=== PATIENT | female | born 1985 | race Caucasian/White ===

== ENCOUNTER 2016-10-30 14:57 | Emergency (ER) | payer MEDICAID, OTHER ==
[~2016-10-30] VITALS: Ht 154.9 cm; Wt 77.4 kg
[~2016-10-30 14:57] MED LIST: PROT40TA PO
[2016-10-30 14:59] VITALS: BP 122/75; PULSE 64; RESP 16; TEMP 98.8; O2SAT 99
[2016-10-30] MEDS ORDERED: LEXA10TA PO (15:12)
[2016-10-30] MEDS ORDERED: FERR325C PO (15:12)
[2016-10-30] MEDS ORDERED: AZIT250T3 PO (15:33)
--- NOTE | 2016-10-30 15:33 | PD ---
HPI Chief Complaint: ENT Complaint Time Seen by Provider: 15:24 Travel History International Travel<30 days: No Contact w/Intl Traveler<30days: No Traveled to known affect area: No History of Present Illness HPI 31-year-old female presents emergency department with chief complaint of productive cough, fever, chills, nasal congestion, sore throat 8 days. Patient reports similar symptoms and passive bronchitis. Patient denies chest pain or shortness of breath. She reports symptoms are unrelieved by OTC medications. Symptoms severity moderate. No aggravating or alleviating factors. PFSH Past Medical History Medical History: Denies Significant Hx Cancer: No Cardiovascular Problems: No Diabetes: No Diminished Hearing: No Endocrine: No Gastrointestinal Disorders: Yes (GERD DURING ONLY) Genitourinary: Yes (HX OF KIDNEY STONES) Hepatitis: No Hiatal Hernia: No Immune Disorder: No Kidney Stones: Yes Medical other: Yes (HX OF MONONUCLEOSIS 2003) Musculoskeletal: No Neurologic: No Psychiatric: Yes (SLIGHTLY CLAUSTROPHOBIC) Reproductive: No Respiratory: No Immunizations Current: Yes Thyroid Disease: No Tetanus Vaccination: > 5 Years Influenza Vaccination: No ?: Not LMP: on it now : 2 Para: 2 Tubal Ligation: Yes Past Surgical History Abdominal Surgery: Yes (Hernia 2014) AICD: No Genitourinary Surgery: Yes (LITHOTRIPSY--STONE REMOVAL) Gynecologic Surgery: Yes (TUBAL LIGATION 05/2012) Joint Replacement: No Pacemaker: No Other Surgery: Yes (HEMMOIRDECTOMY 2007) Social History Alcohol Use: Yes (RARELY) Tobacco Use: No (QUIT 10 YRS AGO) Substance Use: No Allergies-Medications (Allergen,Severity, Reaction): Coded Allergies: No Known Allergies (Verified , 10/30/16) Reported Meds & Prescriptions Reported Meds & Active Scripts Active Reported Iron (Ferrous Sulfate) 325 Mg Cap 325 Mg PO DAILY Lexapro (Escitalopram Oxalate) 10 Mg Tab 10 Mg PO DAILY Review of Systems Except as stated in HPI: all other systems reviewed are Neg General / Constitutional: Positive: Fever, Chills Respiratory: Positive: Cough Physical Exam Narrative GENERAL: Well-nourished, well-developed patient. SKIN: Focused skin assessment warm/dry. HEAD: Normocephalic. EYES: No scleral icterus. No injection or drainage. NECK: Supple, trachea midline. No JVD or lymphadenopathy. CARDIOVASCULAR: Regular rate and rhythm without murmurs, gallops, or rubs. RESPIRATORY: Breath sounds equal bilaterally. No accessory muscle use. Questionable rhonchi left upper lobe GASTROINTESTINAL: Abdomen soft, non-tender, nondistended. MUSCULOSKELETAL: No cyanosis, or edema. BACK: Nontender without obvious deformity. No CVA tenderness. Data Data Last Documented VS Vital Signs Date Time Temp Pulse Resp B/P (MAP) Pulse Ox O2 Delivery O2 Flow Rate FiO2 10/30/16 14:59 98.8 64 16 122/75 (91) 99 MDM Medical Decision Making Medical Screen Exam Complete: Yes Emergency Medical Condition: Yes Differential Diagnosis Bronchitis, pneumonia, URI Narrative Course 31-year-old female presents emergency apart for evaluation of cough, fever, nasal congestion 3 days. Patient's vital signs are stable. She is nontoxic appearing. On exam patient has fish bone rhonchi left upper lobe. Patient be treated for bronchitis. She was instructed to follow-up with her primary doctor. Patient verbalizes understanding and agrees to plan Diagnosis Primary Impression: Bronchitis Referrals: Primary Care Physician Additional Instructions: Take the medication as prescribed. Take [id number] Motrin 600-5800 milligrams every 6-8 hours as needed for pain. Continue [id number] cough and cold medicine as needed for symptoms. Follow up with her primary doctor. Scripts Azithromycin (Azithromycin) 250 Mg Tab 250 MG PO DIRECTED for Infection, #6 TAB 0 Refills Take 2 tabs (500 mg) on day 1 then 1 tab daily x 4 days. Prov: Alejandra Cox 10/30/16 Disposition: 01 DISCHARGE HOME Condition: Stable Alejandra Cox Oct 30, 2016 15:33
[2016-12-16] MEDS ORDERED: LEXA10TA PO (10:12)
== END 2016-10-30 15:43 | disposition home or self-care (01) ==
LOC: PHEFT 14:57
DX: J40 Bronchitis, not specified as acute or chronic (principal); R50.9 Fever, unspecified; R09.81 Nasal congestion; R07.0 Pain in throat; Z87.442 Personal history of urinary calculi
CPT/HCPCS: 99283

== ENCOUNTER 2017-03-08 13:59 | Emergency (ER) | payer MEDICAID ==
[~2017-03-08] VITALS: Ht 154.9 cm; Wt 99.0 kg
[~2017-03-08 13:59] MED LIST changes: +FERR325C PO; +LEXA10TA PO; -PROT40TA PO
[2017-03-08 14:06] VITALS: BP 133/80; PULSE 93; RESP 16; TEMP 96; TEMP 99; O2SAT 16; O2SAT 96
--- NOTE | 2017-03-08 14:28 | PD ---
HPI . Cold symptoms Chief Complaint: Cold / Flu Symptoms Time Seen by Provider: 14:14 Travel History International Travel<30 days: No Contact w/Intl Traveler<30days: No Traveled to known affect area: No History of Present Illness HPI Patient presents with the chief complaint of myalgias. Onset was about 2 days ago. She reports the onset of vomiting and diarrhea approximately 4 days ago. Those symptoms have improved and developed the myalgias as well as a cough. She states that she has taken Robitussin for the cough but has not taken anything for myalgias. She rates her pain 7/10 with no modifying factors. PFSH Past Medical History Cancer: No Cardiovascular Problems: No Diabetes: No Diminished Hearing: No Endocrine: No Gastrointestinal Disorders: Yes (GERD DURING ONLY) Genitourinary: Yes (HX OF KIDNEY STONES) Hepatitis: No Hiatal Hernia: No Immune Disorder: No Kidney Stones: Yes Medical other: Yes (HX OF MONONUCLEOSIS 2003) Musculoskeletal: No Neurologic: No Psychiatric: Yes (SLIGHTLY CLAUSTROPHOBIC) Reproductive: No Respiratory: No Immunizations Current: Yes Thyroid Disease: No Influenza Vaccination: No ?: Not LMP: 02/17/17 : 2 Para: 2 Tubal Ligation: Yes Past Surgical History Abdominal Surgery: Yes (Hernia 2014) AICD: No Genitourinary Surgery: Yes (LITHOTRIPSY--STONE REMOVAL) Gynecologic Surgery: Yes (TUBAL LIGATION 05/2012) Joint Replacement: No Pacemaker: No Other Surgery: Yes (HEMMOIRDECTOMY 2007) Social History Alcohol Use: Yes (RARELY) Tobacco Use: No (QUIT 10 YRS AGO) Substance Use: No Allergies-Medications (Allergen,Severity, Reaction): Coded Allergies: No Known Allergies (Verified Adverse Reaction, Unknown, 03/08/17) Reported Meds & Prescriptions Reported Meds & Active Scripts Active Lexapro (Escitalopram Oxalate) 10 Mg Tab 10 Mg PO DAILY Review of Systems Except as stated in HPI: all other systems reviewed are Neg General / Constitutional: Positive: Fever, Chills Respiratory: Positive: Cough Gastrointestinal: Positive: Nausea Musculoskeletal: Positive: Myalgias Physical Exam Narrative Vital Signs Date Time Temp Pulse Resp B/P (MAP) Pulse Ox O2 Delivery O2 Flow Rate FiO2 03/08/17 14:15 96 Room Air 03/08/17 14:06 99.0 93 16 133/80 (97) 96 GENERAL: Awake and alert and in no acute distress. SKIN: Warm and dry. Good color and turgor. HEAD: Normocephalic/atraumatic. EYES: Pupils are equal. Extraocular movements are intact. No conjunctival injection or discharge. ENT: Nasal turbinates are not edematous or erythematous. There is no nasal discharge. Oropharynx has no erythema. NECK: Normal range of motion. Supple with no cervical lymphadenopathy. CARDIOVASCULAR: Regular rate and rhythm. Heart sounds are normal. RESPIRATORY: Nonlabored respirations. Lungs are clear with full air movement throughout. MUSCULOSKELETAL: Atraumatic. NEUROLOGICAL: Nonfocal. PSYCHIATRIC: Appropriate mood and affect. Data Data Last Documented VS Vital Signs Date Time Temp Pulse Resp B/P (MAP) Pulse Ox O2 Delivery O2 Flow Rate FiO2 03/08/17 14:15 96 Room Air 03/08/17 14:06 99.0 93 16 133/80 (97) Orders Orders Ed Discharge Order (03/08/17 14:24) MDM Medical Decision Making Medical Screen Exam Complete: Yes Emergency Medical Condition: Yes Differential Diagnosis Differential diagnosis includes but is not limited to influenza, upper respiratory infection, bronchitis, pneumonia Narrative Course This patient presents with symptoms compatible with a viral syndrome. That is she started diarrhea 4 days ago and subsequently developed myalgias and cough. Her physical exam is unremarkable. She has taken Robitussin for her cough but has not taken anything for her myalgias. The myalgias is the main complaint today. She will be discharged with instructions to take ibuprofen or acetaminophen as needed for myalgias. She should drink plenty of fluids. Diagnosis Primary Impression: Viral syndrome Patient Instructions: General Instructions, Viral Syndrome (ED) Departure Forms: Tests/Procedures Additional Instructions: Tylenol or ibuprofen for fever and body aches. Zofran for nausea. Lots of fluids. Disposition: 01 DISCHARGE HOME Condition: Stable Bing Lou MD Mar 08, 2017 14:28
== END 2017-03-08 14:33 | disposition home or self-care (01) ==
LOC: PHED 13:59
DX: B34.9 Viral infection, unspecified (principal); Z87.891 Personal history of nicotine dependence
CPT/HCPCS: 99282